=== PATIENT | female | born 1965 | race Caucasian/White ===

== ENCOUNTER 2022-08-20 12:11 | Emergency (ER) | payer OTHER ==
[2022-08-20 14:51] LABS: CORONAVIRUS COVID-19 NAA NEGATIVE (NEGATIVE); INFLUENZA A NAA NEGATIVE (NEGATIVE); RESPIRATORY SYNCYTIAL VIR NAA NEGATIVE (NEGATIVE)
[2022-08-20] MEDS ORDERED: Sodium Chloride 0.9% 10 ML Syringe FLUSH PRN (15:09)
[2022-08-20] MEDS ORDERED: Metoclopramide 10 MG/2 ML SDV IVPUSH ONE (15:09)
[2022-08-20] MEDS ORDERED: diphenhydrAMINE 50 MG/ML SDV IVPUSH ONE (15:10)
[2022-08-20] MEDS ORDERED: HYDROmorphone 0.5 MG/0.5 ML Syringe IVPUSH ONE (15:11)
[2022-08-20] MEDS ORDERED: Sodium Chloride 0.9% 1,000 ML IV SCH ×2 (15:15→20:15)
[2022-08-20 15:27] LABS: BASOPHILS ABSOLUTE AUTO 0.01 K/mm3 (0.01-0.08); BASOPHILS PERCENT AUTO 0.2 % (0.1-1.2); EOSINOPHILS ABSOLUTE AUTO 0.05 K/mm3 (0.04-0.36); EOSINOPHILS PERCENT AUTO 0.8 (0.7-5.8); HEMATOCRIT 40.4 % (34.1-44.9); HEMOGLOBIN 13.7 gm/dl (11.2-15.7); IMMATURE GRAN ABSOLUTE AUTO 0.04 K/mm3 (0.00-0.10); IMMATURE GRAN PERCENT AUTO 0.6 % (<=1.0); LYMPHOCYTES ABSOLUTE AUTO 0.33 K/mm3 (1.18-3.74); LYMPHOCYTES PERCENT AUTO 5.2 % (19.3-51.7); MEAN CORPUSCULAR HGB CONC 33.9 g/dl (32.2-35.5); MEAN CORPUSCULAR VOLUME 91.4 fl (79.4-94.8); MEAN PLATELET VOLUME 10.8 fl (9.4-12.3); MONOCYTES ABSOLUTE AUTO 0.26 K/mm3 (0.24-0.36); MONOCYTES PERCENT AUTO 4.1 % (4.7-12.5); NEUTROPHILS ABSOLUTE AUTO 5.64 K/mm3 (1.56-6.13); NEUTROPHILS PERCENT AUTO 89.1 % (34.0-71.1); PLATELET COUNT,PLT 252 K/mm3 (182-369); RED BLOOD CELL COUNT 4.42 M/mm3 (3.98-5.22); WHITE BLOOD CELL COUNT,WBC 6.33 K/mm3 (3.98-10.04)
[2022-08-20 15:54] LABS: A/G RATIO 0.9 (1-2); ALBUMIN 3.4 g/dl (3.4-5.0); BILIRUBIN TOTAL 0.4 mg/dL (0.2-1.0); BUN/CREATININE RATIO 16.7 (14-18); CALCIUM 8.8 mg/dL (8.5-10.1); CREATININE 1.8 mg/dL (0.55-1.02); EST CRCL DRUG DOSING (CG) 36.84 mL/min; MAGNESIUM 1.9 mg/dL (1.8-2.4); PROTEIN TOTAL,TP 7.2 g/dl (6.4-8.2)
[2022-08-20 16:11] LABS: C-REACTIVE PROTEIN 25.9 mg/dL (<1.0)
[2022-08-20 16:40] LABS: SLIDE REVIEW ABNORMAL SMEAR
[2022-08-20] MEDS ORDERED: Sodium Chloride 0.9% 1,000 ML IV ONE (17:10)
[2022-08-20] MEDS ORDERED: Ketorolac 30 MG/ML SDV IVPUSH ONE (17:17)
[2022-08-20] MEDS: Potassium Chloride 10 MEQ in Premix Bag 1 BAG IV SCH ×2 (18:34→19:51)
[2022-08-20] MEDS ORDERED: HYDROmorphone 1 MG/ML Syringe IVPUSH ONE (19:54)
== END 2022-08-20 21:29 | disposition home or self-care (01) ==
LOC: JD.ED 12:11
DX: R51.9 Headache, unspecified (principal); E86.0 Dehydration; E87.6 Hypokalemia; E87.1 Hypo-osmolality and hyponatremia; R19.7 Diarrhea, unspecified; I10 Essential (primary) hypertension; E03.9 Hypothyroidism, unspecified; Z79.899 Other long term (current) drug therapy; Z20.822 Contact with and (suspected) exposure to COVID-19
CPT/HCPCS: 0241U; 36415; 70450; 80053; 83690; 83735; 84484; 85025; 86140; 87045; 87046; 87493; 87899; 93005; 96361; 96365; 96366; 96375; 96376; 99284; J1170; J1200; J1885; J2765; J3480; J7030; 93010